=== PATIENT | female | born 2000 | race Hispanic/Latino ===

== ENCOUNTER 2023-03-23 22:30 | Emergency (ER) | payer OTHER, SELFPAY ==
[2023-03-23 22:38] VITALS: BP 123/80; PULSE 90; RESP 18; TEMP 36.4; O2SAT 100; BMI 25.7
--- NOTE | 2023-03-23 22:42 | DI.RAD.S_ITS ---
PROCEDURE: XR CHEST 1V INDICATIONS: chest pain TECHNIQUE: One view of the chest was acquired. COMPARISON: None. FINDINGS: Surgical changes and devices: None. Lungs and pleura: No consolidation or pleural effusion. Mediastinum: Normal size Bones and chest wall: Unremarkable IMPRESSION: No acute radiographic abnormality. Dictated by: Fab Bailey M.D. on 03/23/2023 at 23:39 Approved by: Fab Bailey M.D. on 03/23/2023 at 23:40
--- NOTE | 2023-03-23 23:06 | ED.CHESTPAIN ---
HPI - Chest Pain General Chief Complaint: Chest Pain Stated Complaint: chest pains Time Seen by Provider: 03/23/23 22:35 Source: patient Mode of arrival: Ambulatory Limitations: no limitations History of Present Illness HPI narrative: 22-year-old female with no reported past medical history presents for central upper chest pain that is worse with expiration since waking up this morning. No medications taken prior to arrival. Patient denies family history of heart disease, denies history of tobacco use. Denies use of oral contraceptive pills, recent surgeries or immobilization, denies recent long car/plane rides, denies leg swelling. Review of Systems Review of Systems Narrative: Otherwise negative Patient History Social History Smoking Status: Current some day smoker Smoking Status: Current some day smoker tobacco type: vaping Substance Use Type: does not use Exam Initial Vital Signs Initial Vital Signs: Vital Signs Temperature 97.6 F 03/23/23 22:38 Pulse Rate 90 03/23/23 22:38 Respiratory Rate 18 03/23/23 22:38 Blood Pressure 123/80 03/23/23 22:38 Pulse Oximetry 100 03/23/23 22:38 Oxygen Delivery Method Room Air 03/23/23 22:38 Const: Awake, alert, no acute distress, nontoxic appearing Cardiac: regular rate, regular rhythm, upper sternal chest pain reproducible to palpation RESP: unlabored, clear bilaterally, no wheezing GI: Atraumatic, soft, nontender, nondistended, no rebound, no guarding Skin: Warm, Dry, intact, no rashes Neuro: AO x3, CN II-XII grossly intact, moves all extremities Course Course Course Narrative: Well-appearing patient with 1 day of central reproducible chest pain. Heart score 0, PERC negative. EKG is normal sinus rhythm without concerning findings. Chest x-ray is negative for acute process. Likely costochondritis. Patient counseled to take Tylenol and Motrin as needed for symptoms and to use gentle stretching exercises to help relieve pain. PCP follow up advised. ED return precautions discussed at bedside. Patient expressed understanding of the plan and is in agreement at this time. All questions answered at the time of discharge. Orders Ordered: ED Orders 03/23/23 22:42 Chest [XR chest 1V] Stat EKG-12 Lead Stat Discontinued Medications Acetaminophen (Acetaminophen 325 Mg Tablet) 975 mg PO NOW ONE Stop: 03/23/23 23:36 Last Admin: 03/23/23 23:42 Dose: 975 mg Documented By: FRANCISCO J Ibuprofen (Ibuprofen 400 Mg Tablet) 400 mg PO NOW ONE Stop: 03/23/23 23:36 Last Admin: 03/23/23 23:42 Dose: 400 mg Documented By: FRANCISCO J Vital Signs Vital signs: Vital Signs - 8 hr 03/23/23 22:38 03/23/23 23:52 Temperature 97.6 F Pulse Rate 90 76 Respiratory Rate 18 16 Blood Pressure 123/80 105/69 Pulse Oximetry 100 98 Oxygen Delivery Method Room Air Room Air MDM - Chest Pain Differential Diagnosis Differential diagnosis: Likely pneumothorax, atypical chest pain and costochondritis ECG Data Interpretation: Normal sinus rhythm, rate 88 beats per minute. Normal UT interval. No ST T wave changes, no STEMI Discharge Plan Departure Patient Disposition: Home Clinical Impression: Sternum pain Instructions: DI for Atypical Chest Pain Activity Restrictions/Additional Instructions: Take Tylenol and motrin as needed for pain. Gentle chest wall stretching exercises can be helpful. Follow up as needed with your PCP. Referrals: ProviderAnahi [Primary Care Provider] - Stand Alone Forms: Patient Portal/API
[2023-03-23] MEDS: ACETAMINOPHEN 325 MG TABLET 975 MG PO (23:42)
[2023-03-23] MEDS: IBUPROFEN 400 MG TABLET PO (23:42)
[2023-03-23 23:52] VITALS: BP 105/69; PULSE 76; RESP 16; O2SAT 98
== END 2023-03-23 23:53 | disposition home or self-care (01) ==
PROVIDERS: Emergency Provider Emergency Medicine
DX: R07.89 Other chest pain (principal)
CPT/HCPCS: 71045; 93005; 93010; 99283; 99284

== ENCOUNTER 2024-07-16 09:41 | Emergency (ER) | payer OTHER, SELFPAY ==
[2024-07-16 09:47] VITALS: BP 113/57; PULSE 75; RESP 18; TEMP 36.7; O2SAT 98; BMI 25.7
--- NOTE | 2024-07-16 10:09 | DI.US.S_ITS ---
PROCEDURE: US OB <= 14 WEEKS FETUS INDICATIONS: spotting for 1 week OUTSIDE/PRIOR DATING DATA: Last menstrual period (LMP): 05/19/2024. LMP-based estimated date of delivery (PATITO): 02/28/2025. First dating scan (date and location): 07/16/2024. Estimated date of delivery (PATITO) from first dating scan: 03/04/2025. The calculations are made using the ultrasound PATITO of 03/04/2025. TECHNIQUE: Real-time scanning was performed of the fetus and maternal pelvic organs, with image documentation. Endovaginal scanning was also performed to better visualize the fetus and maternal ovaries. COMPARISON: None. FINDINGS: Embryo: [place]-rump length measuring 1.0 cm, 7 weeks 0 days. Heart rate: 132 Maternal organs: Ovaries are unremarkable. There is a 1.7 cm right corpus luteum. Small subchorionic hemorrhage measuring 0.7 x 0.2 x 0.3 cm.\ . IMPRESSION: 1. Living early 1st trimester intrauterine with crown-rump length and heartbeat measuring 7 weeks 0 days. 2. Small subchorionic hemorrhage. We strive to produce accurate, complete, and clear reports of imaging services. To assist us in improving patient care, this report was composed using standard report templates and voice recognition software. Therefore, it may contain abnormal punctuation, insertions and/or omissions. Occasional wrong-word or sound-alike substitutions may occur. Though we review the report and make efforts to correct it, we do recommend that the report be read carefully in proper context to recognize any text inaccuracies. Dictated by: Clay Echols M.D. on 07/16/2024 at 10:52 Approved by: Clay Echols M.D. on 07/16/2024 at 10:55
--- NOTE | 2024-07-16 10:15 | PC.NURSE ---
Pt reports most time she wipes over the course of the last 10 days she has seen pink to orange/red blood. Pt states she is not going through pads. states this is the first time she is . Pt states some mild intermittent cramping.
[2024-07-16 10:21] LABS: Add Manual Diff / Slide Review NO; Basophils Absolute Auto 0 /uL (0-100); Basophils Percent Auto 0.6 % (0-2); Eosinophils Absolute Auto 100 /uL (0-450); Eosinophils Percent Auto 0.8 % (2-4); Hematocrit 38.1 % (36-46); Lymphocytes Absolute Auto 2100 /uL (1100-4500); Lymphocytes Percent Auto 26.9 % (25-40); Mean Corpuscular HGB Conc 34.1 % (30-36); Mean Corpuscular Hemoglobin 30.3 PG (26-34); Monocytes Absolute Auto 600 /uL (0-900); Monocytes Percent Auto 7.8 % (3-14); Neutrophils Absolute Auto 5000 /uL (1500-7000); Neutrophils Percent Auto 63.9 % (50-75); Platelet Count 272 X10^3/uL (150-400); Red Blood Cell Count 4.28 X10^6/uL (4.0-5.2); Red Cell Distribution Width 12.6 % (11.6-14.8); White Blood Cell Count 7.8 X10^3/uL (4.5-11.0)
[2024-07-16 10:24] LABS: Urine Volume 10mL (spun)
[2024-07-16 10:27] LABS: Bacteria Urine None Seen; Culture Indicated Urine Specimen Cultured; RBC Urine 1-5/HPF (0-5/HPF); Squamous Epithelial Cell Urine 5-10 /HPF (0-5/HPF); WBC Urine 5-10/HPF (0-5/HPF)
[2024-07-16 10:34] LABS: Alanine Aminotransferase 16 IU/L (<35); Albumin 4.1 g/dL (3.5-5.0); Albumin Globulin Ratio 1.5 (1.0-2.8); Alkaline Phosphatase 49 U/L (38-126); Aspartate Aminotransferase 23 IU/L (14-36); BUN Creatinine Ratio 14.3 (6-22); Bilirubin Total 1.3 mg/dL (0.2-1.3); Blood Urea Nitrogen 9 mg/dL (7-17); Calcium 8.9 mg/dL (8.4-10.2); Carbon Dioxide 24 mmol/L (22-32); Chloride 103 mmol/L (98-107); Estimated Glomerular Filt Rate > 60 mL/min (>60); Globulin 2.8 g/dL (1.7-4.1); Glucose 84 mg/dL (70-99); HEMOLYSIS < 15 (0-50); Potassium 3.4 mmol/L (3.4-5.1); Sodium 135 mmol/L (137-145); Total Protein 6.9 g/dL (6.3-8.2)
--- NOTE | 2024-07-16 10:50 | ED_ITS ---
HPI - Female Genitourinary General Chief complaint: Vaginal Bleeding Stated complaint: 8 Weeks spotting Time Seen by Provider: 07/16/24 10:15 History of Present Illness HPI Narrative: Patient is a 24-year-old female presenting to day with vaginal bleeding. She reports that she was about 8 weeks . Has not yet set up OB care. But for about 1 week has noted some spotting. Mostly when she wipes does not ever need a pad. No significant pain or cramping. No dizziness or lightheadedness takes prenatals. Related Data Allergies Allergy/AdvReac Type Severity Reaction Status Date / Time No Known Drug Allergies Allergy Verified 07/16/24 09:47 Patient History tobacco type: vaping Last Alcoholic Drink: does not use Exam Initial Vital Signs Initial Vital Signs: Vital Signs Temperature 98.1 F 07/16/24 09:47 Pulse Rate 75 07/16/24 09:47 Respiratory Rate 18 07/16/24 09:47 Blood Pressure 113/57 L 07/16/24 09:47 Pulse Oximetry 98 07/16/24 09:47 Oxygen Delivery Method Room Air 07/16/24 09:47 Course Orders Ordered: ED Orders 07/16/24 09:55 Urine Culture Stat Urine Microscopic Stat 07/16/24 10:08 Complete Blood Count AUTO DIFF Stat Comprehensive Metabolic Panel Stat HCG Quantitative /Beta subunit Stat Type and Screen Stat 07/16/24 10:09 OB <= 14 weeks fetus Stat Vital Signs Vital signs: Vital Signs - 8 hr 07/16/24 11:37 07/16/24 11:38 07/16/24 11:38 Pulse Rate 64 64 Blood Pressure 109/63 Pulse Oximetry 99 MDM - Female Genitourinary Lab Data 07/16/24 10:08 07/16/24 10:08 Labs: Lab Results 07/16/24 07/16/24 Range/Units 09:55 10:08 WBC 7.8 (4.5-11.0) X10^3/uL RBC 4.28 (4.0-5.2) X10^6/uL Hgb 13.0 (12.0-16.0) g/dL Hct 38.1 (36-46) % MCV 89.0 (80-100) fL MCH 30.3 (26-34) PG MCHC 34.1 (30-36) % RDW 12.6 (11.6-14.8) % Plt Count 272 (150-400) X10^3/uL Neut % (Auto) 63.9 (50-75) % Lymph % (Auto) 26.9 (25-40) % [place]gs % (Auto) 7.8 (3-14) % Eos % (Auto) 0.8 L (2-4) % Baso % (Auto) 0.6 (0-2) % Neut # (Auto) 5000 (7564-0087) /uL Lymph # (Auto) 2100 (3342-6493) /uL [place] # (Auto) 600 (0-900) /uL Eos # (Auto) 100 (0-450) /uL Baso # (Auto) 0 (0-100) /uL Sodium 135 L (137-145) mmol/L Potassium 3.4 (3.4-5.1) mmol/L Chloride 103 (98-107) mmol/L Carbon Dioxide 24 (22-32) mmol/L BUN 9 (7-17) mg/dL Creatinine 0.63 (0.52-1.04) mg/dL Estimated GFR > 60 (>60) mL/min BUN/Creatinine Ratio 14.3 (6-22) Glucose 84 (70-99) mg/dL Calcium 8.9 (8.4-10.2) mg/dL Total Bilirubin 1.3 (0.2-1.3) mg/dL AST 23 (14-36) IU/L ALT 16 (<35) IU/L Alkaline Phosphatase 49 (38-126) U/L Total Protein 6.9 (6.3-8.2) g/dL Albumin 4.1 (3.5-5.0) g/dL Globulin 2.8 (1.7-4.1) g/dL Albumin/Globulin Ratio 1.5 (1.0-2.8) HCG, Quant 834337 mIU/mL Urine RBC 1-5/hpf (0-5/HPF) Urine WBC 5-10/hpf H (0-5/HPF) Ur Squamous Epith Cells 5-10 /hpf H (0-5/HPF) Urine Bacteria None seen (None) Ur Culture Indicated? Specimen cultured Vol Urine Centrifuged 10ml (spun) Blood Type A Positive Antibody Screen Negative Point of Care Testing Test Results Positive Urine Dip Bedside Urine Glucose Negative Bedside Urine Bilirubin - Negative Bedside Urine Ketone +/- 5 Urine Specific Bernard 1.025 Bedside Urine Occult Blood +/- Bedside Urine pH 6.0 Bedside Urine Protein +/- 15 Bedside Urine Urobilinogen - Negative Bedside Urine Nitrite - Negative Bedside Urine Leukocytes ++ 125 Esterase Imaging Data US - OB: Radiologist's Impression: PROCEDURE: US OB <= 14 WEEKS FETUS INDICATIONS: spotting for 1 week OUTSIDE/PRIOR DATING DATA: Last menstrual period (LMP): 05/19/2024. LMP-based estimated date of delivery (PATITO): 02/28/2025. First dating scan (date and location): 07/16/2024. Estimated date of delivery (PATITO) from first dating scan: 03/04/2025. The calculations are made using the ultrasound PATITO of 03/04/2025. TECHNIQUE: Real-time scanning was performed of the fetus and maternal pelvic organs, with image documentation. Endovaginal scanning was also performed to better visualize the fetus and maternal ovaries. COMPARISON: None. FINDINGS: Embryo: [place]-rump length measuring 1.0 cm, 7 weeks 0 days. Heart rate: 132 Maternal organs: Ovaries are unremarkable. There is a 1.7 cm right corpus luteum. Small subchorionic hemorrhage measuring 0.7 x 0.2 x 0.3 cm.\ . IMPRESSION: 1. Living early 1st trimester intrauterine with crown-rump length and heartbeat measuring 7 weeks 0 days. 2. Small subchorionic hemorrhage. We strive to produce accurate, complete, and clear reports of imaging services. To assist us in improving patient care, this report was composed using standard report templates and voice recognition software. Therefore, it may contain abnormal punctuation, insertions and/or omissions. Occasional wrong-word or sound-alike substitutions may occur. Though we review the report and make efforts to correct it, we do recommend that the report be read carefully in proper context to recognize any text inaccuracies. Dictated by: Clay Echols M.D. on 07/16/2024 at 10:52 Approved by: Clay Echols M.D. on 07/16/2024 at 10:55 [facility] Narrative Medical decision making narrative: Patient is a 24 year old female presenting to [facility] with vaginal bleeding. She has had some spotting for about a week no significant pain Blood work reviewed she was a pause HCG 192819 CMP shows no electrolyte abnormality or [place], CBC shows no anemia Urinalysis is negative for UTI Ultrasound shows a 7 week IUP with small subchorionic hemorrhage Dr. Jackson, OB, we will have clinic call for follow-up hCG in 48hour Overall abdomen soft nontender she appears well vitals are stable no increased UD Discharge Plan Departure Patient Disposition: Home Clinical Impression: Threatened Instructions: DI for Vaginal Bleeding During Activity Restrictions/Additional Instructions: HCG 527938 *You have been diagnosed with vaginal bleeding with *What to do: At this time you will need a 48 hour HCG repeat test is sure it is going Continue pelvic rest *Continue to take medications as directed Continues to take *Follow up with your primary care provider in 2-3 days or call [phone] *Return to ER if you should have increased vaginal bleeding more than 2 pads in 1 hour increased cramps such as or any new, worsening or concerning symptoms Referrals: Anu Weinberg MD [Physician] - Nayla Jackson MD [Physician] - Provider,Anahi WYNN [Primary Care Provider] - Antonina Scales MD [Physician] - Kimberly Farfan DO [Physician] - Stand Alone Forms: Patient Portal/API/Survey
[2024-07-16 11:16] LABS: HCG Quantitative /Beta subunit 104520 mIU/mL
[2024-07-16 11:37] VITALS: PULSE 64
[2024-07-16 11:38] VITALS: BP 109/63; PULSE 64; O2SAT 99
== END 2024-07-16 11:48 | disposition home or self-care (01) ==
PROVIDERS: Emergency Provider Emergency Medicine
DX: O20.0 Threatened abortion (principal); Z3A.01 Less than 8 weeks gestation of pregnancy
CPT/HCPCS: 36415; 76801; 80053; 81003; 81015; 81025; 84702; 85025; 86850; 86900; 86901; 87086; 99282; 99284

== ENCOUNTER → 2024-07-18 10:16 | Outpatient (CLI) | payer OTHER, SELFPAY ==
[2024-07-18 10:38] LABS: Add Manual Diff / Slide Review NO; Basophils Absolute Auto 100 /uL (0-100); Basophils Percent Auto 0.6 % (0-2); Eosinophils Absolute Auto 100 /uL (0-450); Eosinophils Percent Auto 0.6 % (2-4); Hematocrit 38.6 % (36-46); Hemoglobin 13.2 g/dL (12.0-16.0); Lymphocytes Absolute Auto 2300 /uL (1100-4500); Lymphocytes Percent Auto 26.2 % (25-40); Mean Corpuscular HGB Conc 34.1 % (30-36); Mean Corpuscular Hemoglobin 30.1 PG (26-34); Mean Corpuscular Volume 88.3 fL (80-100); Monocytes Absolute Auto 600 /uL (0-900); Monocytes Percent Auto 6.6 % (3-14); Neutrophils Absolute Auto 5900 /uL (1500-7000); Platelet Count 275 X10^3/uL (150-400); Red Blood Cell Count 4.37 X10^6/uL (4.0-5.2); Red Cell Distribution Width 12.6 % (11.6-14.8)
[2024-07-18 11:27] LABS: Appearance Urine UA SL CLOUDY; Bilirubin Urine UA NEGATIVE (NEGATIVE); Color Urine UA YELLOW; Glucose Urine UA NEGATIVE (Negative); Ketones Urine UA NEGATIVE (NEGATIVE); Leukocyte Esterase Urine UA 1+ (NEGATIVE); Nitrite Urine UA NEGATIVE (Negative); Occult Blood Urine UA NEGATIVE (Negative); Protein Urine UA TRACE (Negative); Urobilinogen Urine UA 0.2 E.U./dL (0.2)
[2024-07-18 11:36] LABS: Squamous Epithelial Cell Urine 10-30 /HPF (0-5/HPF); Urine Volume 10mL (spun)
[2024-07-18 11:37] LABS: Bacteria Urine Many (>30); Culture Indicated Urine Cult Not Indicated; RBC Urine None Seen (0-5/HPF); WBC Urine 1-5/HPF (0-5/HPF)
[2024-07-18 11:38] LABS: Hepatitis B Surface Antigen NEGATIVE s/c (NEGATIVE)
[2024-07-18 11:55] LABS: HIV 1 & 2 Ab/Ag 4th Gen Combo NEGATIVE (NEGATIVE); Hep C Virus Ab w/Reflex Quant NEGATIVE s/c (NEGATIVE)
== END ==
LOC: LAB 10:18
PROVIDERS: Referring Provider Student in an Organized Health Care Education/Training Program; Visit Provider Student in an Organized Health Care Education/Training Program
DX: Z34.00 Encounter for supervision of normal first pregnancy, unspecified trimester (principal)
CPT/HCPCS: 36415; 80055; 81003; 81015; 86787; 86803; 86850; 86900; 86901; 87086; 87389

== ENCOUNTER → 2024-07-20 08:56 | Outpatient (CLI) | payer OTHER, SELFPAY ==
[2024-07-20 09:56] LABS: Appearance Urine UA CLEAR; Bilirubin Urine UA NEGATIVE (NEGATIVE); Color Urine UA YELLOW; Glucose Urine UA NEGATIVE (Negative); Ketones Urine UA NEGATIVE (NEGATIVE); Leukocyte Esterase Urine UA TRACE (NEGATIVE); Nitrite Urine UA NEGATIVE (Negative); Occult Blood Urine UA NEGATIVE (Negative); Protein Urine UA NEGATIVE (Negative); Urobilinogen Urine UA 0.2 E.U./dL (0.2)
[2024-07-20 10:19] LABS: pH Urine UA 6.5 (4.5-8.0)
[2024-07-20 10:20] LABS: Bacteria Urine Few (2-10); RBC Urine 0-1/HPF (0-5/HPF); Squamous Epithelial Cell Urine 5-10 /HPF (0-5/HPF); Urine Volume 10mL (spun); WBC Urine 1-5/HPF (0-5/HPF)
== END ==
PROVIDERS: Referring Provider Student in an Organized Health Care Education/Training Program; Visit Provider Student in an Organized Health Care Education/Training Program
DX: Z34.90 Encounter for supervision of normal pregnancy, unspecified, unspecified trimester (principal); R30.0 Dysuria; R82.71 Bacteriuria
CPT/HCPCS: 81001; 87086

== ENCOUNTER → 2024-08-07 10:26 | Outpatient (CLI) | payer OTHER, SELFPAY ==
[2024-08-07 11:32] LABS: Natera Collection Specimen Collected
== END ==
PROVIDERS: Referring Provider Student in an Organized Health Care Education/Training Program; Visit Provider Student in an Organized Health Care Education/Training Program
DX: Z34.01 Encounter for supervision of normal first pregnancy, first trimester (principal); Z13.79 Encounter for other screening for genetic and chromosomal anomalies; Z3A.10 10 weeks gestation of pregnancy
CPT/HCPCS: 36415

== ENCOUNTER 2024-08-23 13:07 | Emergency (ER) | payer OTHER, SELFPAY ==
[2024-08-23 13:34] VITALS: BP 112/62; PULSE 78; RESP 18; TEMP 36.9; O2SAT 99; BMI 26.2
[2024-08-23 14:25] LABS: RBC Urine None Seen (0-5/HPF); Squamous Epithelial Cell Urine 5-10 /HPF (0-5/HPF); Urine Volume 10mL (spun); WBC Urine 1-5/HPF (0-5/HPF)
[2024-08-23 14:26] LABS: Bacteria Urine Few (2-10)
[2024-08-23 14:27] LABS: Culture Indicated Urine Cult Not Indicated
--- NOTE | 2024-08-23 15:32 | ED_ITS ---
HPI - Female Genitourinary <Miranda Rivera PA-C - Last Filed: 08/23/24 16:44> General Chief complaint: Urogenital-Female Stated complaint: possible UTI 12wks Time Seen by Provider: 08/23/24 15:29 Source: patient Mode of arrival: Ambulatory History of Present Illness HPI Narrative: Ms. Smith is a very pleasant 24-year-old female with no reported past medical history, currently about [address] Wilson who presents to the emergency department for concern of UTI. Patient states yesterday she started having diarrhea. She is also noticed there is an itch/discomfort near her urethra when she urinates. She has never had a UTI in the past so she was unsure if her symptoms were related to an infection or something else. She has not having any abnormal vaginal discharge, vaginal bleeding, cramping or abdominal pain. She has been feeling overall very well this . She is not currently sexually active. States that she has been holding her bladder more frequently recently. Related Data Home Medications ?Medication ?Instructions ?Recorded ?Confirmed vitamin-ferrous sulfate tab PO 07/18/2408/17 27 mg iron-folic acid 0.8 mg tablet Allergies Allergy/AdvReac Type Severity Reaction Status Date / Time No Known Drug Allergies Allergy Verified 08/23/24 13:35 Review of Systems <Miranda Rivera PA-C - Last Filed: 08/23/24 16:44> Review of Systems ROS Unobtainable: All systems reviewed & are unremarkable except as noted in HPI and below Patient History <Miranda Rivera PA-C - Last Filed: 08/23/24 16:44> Surgical History [place] teeth removed Hx of breast biopsy Family History Mother Gallstones History of cholecystectomy Father Diabetes mellitus Aunt Stomach cancer tobacco type: vaping Last Alcoholic Drink: does not use Exam <Miranda Rivera PA-C - Last Filed: 08/23/24 16:44> Narrative Exam Narrative: GENERAL: 24 year old patient appears stated age. Well-developed patient, in no acute distress. HEAD: Atraumatic. Normocephalic. NECK: Trachea midline. Cervical ROM intact. CARDIOVASCULAR: Regular rate and rhythm. RESPIRATORY: ?Nonlabored respirations. ?Speaking in clear, full sentences. ?Clear to auscultation. Breath sounds equal bilaterally. No wheezes, rales, or rhonchi. ? GASTROINTESTINAL: Abdomen soft, non-tender, nondistended. EXTREMITIES: No edema or joint tenderness. NEURO: AOx3. ?Clear speech. ?Moves all 4 extremities appropriately. SKIN: No rash or erythema of visible areas Initial Vital Signs Initial Vital Signs: Vital Signs Temperature 98.4 F 08/23/24 13:34 Pulse Rate 78 08/23/24 13:34 Respiratory Rate 18 08/23/24 13:34 Blood Pressure 112/62 08/23/24 13:34 Pulse Oximetry 99 08/23/24 13:34 Oxygen Delivery Method Room Air 08/23/24 13:34 <Pam Davis DO - Last Filed: 09/03/24 19:04> Initial Vital Signs Initial Vital Signs: Vital Signs Temperature 98.4 F 08/23/24 13:34 Pulse Rate 78 08/23/24 13:34 Respiratory Rate 18 08/23/24 13:34 Blood Pressure 112/62 08/23/24 13:34 Pulse Oximetry 99 08/23/24 13:34 Oxygen Delivery Method Room Air 08/23/24 13:34 Course <Miranda Rivera PA-C - Last Filed: 08/23/24 16:44> Orders Ordered: Discontinued Medications Cephalexin HCl (Cephalexin 250 Mg Capsule) 500 mg PO NOW ONE Stop: 08/23/24 15:31 Last Admin: 08/23/24 15:36 Dose: 500 mg Documented By: LEANDRA Vital Signs Vital signs: Vital Signs - 8 hr 08/23/24 13:34 08/23/24 16:06 Temperature 98.4 F Pulse Rate 78 74 Respiratory Rate 18 14 Blood Pressure 112/62 107/56 L Pulse Oximetry 99 97 Oxygen Delivery Method Room Air Room Air <DO Dacia Hassan Last Filed: 09/03/24 19:04> Orders Ordered: Discontinued Medications Cephalexin HCl (Cephalexin 250 Mg Capsule) 500 mg PO NOW ONE Stop: 08/23/24 15:31 Last Admin: 08/23/24 15:36 Dose: 500 mg Documented By: DKB Vital Signs Vital signs: Vital Signs - 8 hr 08/23/24 13:34 08/23/24 16:06 Temperature 98.4 F Pulse Rate 78 74 Respiratory Rate 18 14 Blood Pressure 112/62 107/56 L Pulse Oximetry 99 97 Oxygen Delivery Method Room Air Room Air MDM - Female Genitourinary <Miranda Rivera PA-C - Last Filed: 08/23/24 16:44> Medical Records Attestation: I reviewed the patient's medical records. Lab Data Labs: Lab Results 08/23/24 Range/Units 13:40 Urine RBC None seen (0-5/HPF) Urine WBC 1-5/hpf (0-5/HPF) Ur Squamous Epith Cells 5-10 /hpf H (0-5/HPF) Urine Bacteria Few (2-10) H (None) Ur Culture Indicated? Cult not indicated Vol Urine Centrifuged 10ml (spun) Urine Dip Bedside Urine Glucose Negative Bedside Urine Bilirubin - Negative Bedside Urine Ketone - Negative Urine Specific Adams 1.025 Bedside Urine Occult Blood - Negative Bedside Urine pH 6 Bedside Urine Protein - Negative Bedside Urine Urobilinogen - Negative Bedside Urine Nitrite - Negative Bedside Urine Leukocytes +/- 15 Esterase MDM Narrative Medical decision making narrative: 24-year-old female with no reported past medical history, currently about [address] Wilson who presents to the emergency department for concern of UTI. Differential diagnosis includes but is not limited to UTI, urethritis, vulvovaginal candidiasis, bacteriuria in , etc. On exam patient is in no acute distress, nontoxic appearing, vital signs appropriate. She is having slight urinary discomfort for the last 2 days. No abnormal vaginal discharge, no abdominal pain. Not currently sexually active. Point of care urinalysis obtained in triage, urine microscopic was sent revealing few bacteria, WBCs and squamous epithelial cells. Given patient is , we will treat with Keflex t.i.d. x5 days, urine culture pending. I did discuss with the patient that if symptoms do not improve or she develops any white thick discharge symptoms could be related to vulvovaginal candidiasis and she would need to be treated with intravaginal antifungal. Advised she follow up with her OBGYN however we also discussed strict ED return precautions. Patient verbalized understanding of all this information is agreeable to the plan, 1st dose of antibiotics given in the ED and remainder sent to pharmacy of choice. She is stable for discharge home. <Pam Davis DO - Last Filed: 09/03/24 19:04> Lab Data Labs: Lab Results 08/23/24 Range/Units 13:40 Urine RBC None seen (0-5/HPF) Urine WBC 1-5/hpf (0-5/HPF) Ur Squamous Epith Cells 5-10 /hpf H (0-5/HPF) Urine Bacteria Few (2-10) H (None) Ur Culture Indicated? Cult not indicated Vol Urine Centrifuged 10ml (spun) Urine Dip Bedside Urine Glucose Negative Bedside Urine Bilirubin - Negative Bedside Urine Ketone - Negative Urine Specific Adams 1.025 Bedside Urine Occult Blood - Negative Bedside Urine pH 6 Bedside Urine Protein - Negative Bedside Urine Urobilinogen - Negative Bedside Urine Nitrite - Negative Bedside Urine Leukocytes +/- 15 Esterase Discharge Plan Departure Patient Disposition: Home Clinical Impression: Bacteriuria during Instructions: DI for Urinary Tract Infection (UTI) Activity Restrictions/Additional Instructions: Dear Luis, Thank you for coming to the emergency department. Today your urine test did reveal bacteria which are concerning for urinary tract infection. Please complete the full course of antibiotics and follow up with your OBGYN for further management. If you continue to have symptoms such as vaginal itching or if you develop abnormal vaginal discharge, it is possible that your symptoms could be related to a yeast infection as well and you would need topical cream for treatment. Please follow up with your primary care doctor within the next 2-3 days for ER follow-up. (If you do not have a PCP you can call [phone]. ?to schedule an appointment with an [facility] Primary Care Provider) IF YOU DEVELOP ANY NEW OR WORSENING SYMPTOMS, RETURN TO THE ER! Please read the attached instructions, they highlight more specific treatments and interventions for you at home. Thank you for letting me participate in your care, Miranda Rivera PA-C Prescriptions: No Action vit-ferrous sulfat-FA 27 mg iron- 0.8 mg tablet PO Referrals: ProviderAnahi [Primary Care Provider, Family Practice] Stand Alone Forms: Patient Portal/API ED Sign-out <Pam Davis DO - Last Filed: 09/03/24 19:04> Cosign ED Attending Cosignature Attestation: I was immediately available in the department for consultation.
[2024-08-23] MEDS: cephALEXin 250 MG CAPSULE 500 MG PO (15:36)
[2024-08-23 16:06] VITALS: BP 107/56; PULSE 74; RESP 14; O2SAT 97
== END 2024-08-23 16:07 | disposition home or self-care (01) ==
PROVIDERS: Emergency Medicine; Emergency Provider Physician Assistant
DX: O26.891 Other specified pregnancy related conditions, first trimester (principal); R82.71 Bacteriuria; Z3A.12 12 weeks gestation of pregnancy
CPT/HCPCS: 81003; 81015; 87086; 99283

== ENCOUNTER → 2024-10-12 12:14 | Outpatient (CLI) | payer OTHER, SELFPAY ==
--- NOTE | 2024-10-12 12:14 | DI.US.S_ITS ---
PROCEDURE: US OB >= 14 WEEKS FETUS INDICATIONS: ANATOMY OUTSIDE/PRIOR DATING DATA: The calculations are made using the working PATITO of 03/04/2025 TECHNIQUE: Real-time scanning was performed of the fetus, with image documentation and biometric measurements. Endovaginal scanning: Not performed COMPARISON: [facility], OB <= 14 WEEKS FETUS, 07/16/2024, 10:20. FINDINGS: General: A single living intrauterine gestation is present. Presentation: Variable Placenta: Placental position is posterior, without previa. Amniotic fluid index: 14.8 cm, normal range is 5-24 cm. Single deepest vertical pocket is 5.3 cm. heart rate: 150 beats per minute. Maternal cervical canal: Closed and measures 4.5 cm long. Normal lower limit is 2.5 cm. biometrics: Biparietal diameter: 4.5 cm, 19 weeks, 4 days. Head circumference: 16.2 cm, 19 weeks, 0 day. Abdominal circumference: 13.6 cm, 19 weeks, 0 day. Femur length: 2.9 cm, 19 weeks, 0 day Clinically estimated gestational age: 19 weeks, 4 days Composite gestational age from present scan: 19 weeks, 1 day Estimated weight and percentile: 271 g, 19% Anatomic survey: Neuro: Ventricles are non-dilated at less than 10 mm. Cisterna magna is normal at 3-11 mm. Cerebellum is normal in size and morphology. Nuchal skin fold: Normal at less than 6 mm between 14-21 weeks gestational age. Face: Nose and lips, facial profile are normal. Spine: No evidence for spina bifida. Heart: 4-chambered heart is present, with normal ventricular outflow tracts. Diaphragm: Diaphragm is intact. Stomach: Left-sided stomach is present. Kidneys: No hydronephrosis. Normal is less than 5 mm in 2nd trimester, less than 7 mm in 3rd trimester. Cord: 3-vessel cord has orthotopic insertion. Likely venous lakes seen i involving inferior portion of the placenta. Bladder: Normal in size. Extremities: All 4 extremities identified. IMPRESSION: 1. Single live intrauterine gestation with fetus in variable presentation. heart rate is 150 beats per minute. Normal MARTITA at 14.8 cm. Cervix is closed and measures 4.5 cm in length. 2. Estimated weight is at 19%. 3. Normal anatomic survey. 4. Small venous [place] seen in inferior portion of placenta. We strive to produce accurate, complete, and clear reports of imaging services. To assist us in improving patient care, this report was composed using standard report templates and voice recognition software. Therefore, it may contain abnormal punctuation, insertions and/or omissions. Occasional wrong-word or sound-alike substitutions may occur. Though we review the report and make efforts to correct it, we do recommend that the report be read carefully in proper context to recognize any text inaccuracies. Dictated by: Gaurang Schulz M.D. on 10/13/2024 at 15:59 Approved by: Gaurang Schulz M.D. on 10/13/2024 at 16:22
== END ==
LOC: US 12:14
PROVIDERS: Referring Provider Student in an Organized Health Care Education/Training Program; Visit Provider Student in an Organized Health Care Education/Training Program
DX: Z34.92 Encounter for supervision of normal pregnancy, unspecified, second trimester (principal); Z3A.20 20 weeks gestation of pregnancy
CPT/HCPCS: 76811

== ENCOUNTER 2024-11-21 01:52 | Outpatient (CLI) | payer OTHER, SELFPAY | END 2024-11-21 02:26 | disposition home or self-care (01) | LOC: OB 08:05 | PROVIDERS: Referring Provider Obstetrics & Gynecology; Visit Provider Obstetrics & Gynecology | DX: O60.02 Preterm labor without delivery, second trimester (principal); Z3A.25 25 weeks gestation of pregnancy | CPT/HCPCS: 59025; G0378; G0379 ==

== ENCOUNTER → 2024-12-14 13:08 | Outpatient (CLI) | payer OTHER, SELFPAY ==
[2024-12-14 14:37] LABS: Hematocrit 31.1 % (36-46); Hemoglobin 10.9 g/dL (12.0-16.0)
[2024-12-14 14:58] LABS: GTT (PREG) 1 Hour PP 50gm Dose 144 mg/dL (76-139)
== END ==
PROVIDERS: Referring Provider Student in an Organized Health Care Education/Training Program; Visit Provider Student in an Organized Health Care Education/Training Program
DX: Z3A.24 24 weeks gestation of pregnancy (principal)
CPT/HCPCS: 36415; 82950; 85014; 85018

== ENCOUNTER → 2024-12-21 08:10 | Outpatient (CLI) | payer OTHER, SELFPAY ==
[2024-12-21 10:44] LABS: Glucose 1 Hour 123 mg/dL (70-170)
[2024-12-21 11:24] LABS: Glucose Tol Interpretation INTERPRETATION
[2024-12-21 12:23] LABS: Glucose 2 Hour 107 mg/dL (70-140)
[2024-12-21 13:08] LABS: Glucose 3 Hour 81 mg/dL (70-115)
== END ==
PROVIDERS: Visit Provider Student in an Organized Health Care Education/Training Program
DX: Z34.00 Encounter for supervision of normal first pregnancy, unspecified trimester (principal)
CPT/HCPCS: 36415; 82951; 82952

== ENCOUNTER → 2025-02-05 13:54 | Outpatient (CLI) | payer OTHER, SELFPAY ==
[2025-02-06 12:38] LABS: Strep Grp B PCR NEG for Grp B Strep
== END ==
PROVIDERS: Visit Provider Student in an Organized Health Care Education/Training Program
DX: Z34.93 Encounter for supervision of normal pregnancy, unspecified, third trimester (principal); Z3A.36 36 weeks gestation of pregnancy
CPT/HCPCS: 87653

== ENCOUNTER 2025-03-03 17:50 | Inpatient (IN) | payer OTHER, SELFPAY ==
--- NOTE | 2025-03-03 18:58 | PM.OBHP.IH.1 ---
OB HPI Date/Time Date of admission: 03/03/25 Date Patient Seen: 03/03/25 Time Patient Seen: 18:58 History of Present Condition Chief complaint: NST PATITO Calculator Estimated Delivery Date Method Current WG Current Estimate 03/04/25 Ultrasound #1 39w 6d Other Estimates 02/23/25 LMP (Certain) 41w 1d 03/05/25 Ultrasound #2 39w 5d Estimated Gestational Age (weeks): 39w6d : 1 care: good care Dating criteria OB: LMP confirmed by 1st trimester US Ultrasounds: normal mid trimester US Obstetrical complications: none Medical complications OB: none Narrative: Terence is a 24yo G1 @ 39w6d presents to L&D with report of increasing contractions for the last day. increasing in frequency and strength. denies LOF/VB and reports good movement. Preadmission Labs Last OB Lab Results: Blood Type A Positive 07/18/24, 10:24 Antibody Screen Negative 07/18/24, 10:24 Hct, (36-46) 31.1 % L 12/14/24, 14:13 Hgb, (12.0-16.0) 10.9 g/dL L 12/14/24, 14:13 Hep Bs Antigen, (NEGATIVE) Negative s/c 07/18/24, 10:24 Hepatitis C Antibody, (NEGATIVE) Negative s/c 07/18/24, 10:24 Rubella Antibody, (>15) 27.0 IU/mL 07/18/24, 10:24 VZV IgG Antibody, (Non Reactive) Non reactive 07/18/24, 10:24 Glucose 1 Hr 50 gm, (76-139) 144 mg/dL H 12/14/24, 14:13 Group B Strep (PCR) Neg for grp b strep 02/05/25, 13:54 Prior (ies) Hx # Term Pregnancies: 0 PFSH Surgical History [place] teeth removed Hx of breast biopsy Family History Mother Gallstones History of cholecystectomy Father Diabetes mellitus Aunt Stomach cancer Social History marital status: unmarried,single number of children: 0 lives independently: Yes caregiver/support person: No housing: other (barracks) pets and animals: No education level: high school occupational status: employed ([employer]) current occupational exposures/hazards: No (not since becoming ) special lisette needs: No travel history: recent () seatbelt use: always helmet use: Yes water heater temp set < 120 deg: Yes working smoke detector in home: Yes fire extinguisher in home: Yes carbon monox detector in home: Yes firearms in home: No do you feel safe at home: Yes second hand exposure: No alcohol intake: former (rarely when not ) substance use type: does not use during the past year weight has: remained stable well-balanced diet: about half the time daily servings fruits/ve-4 caffeine: No (stopped energy drinks w/ ) Type(s) of exercise: walking and weight lifting Meds Home Medications and Allergies Home Medications ?Medication ?Instructions ?Recorded ?Confirmed ?Type vitamin-ferrous sulfate 1 tab PO DAILY 07/18/24 02/27/25 History 27 mg iron-folic acid 0.8 mg tablet breast pump ([employer] Breast #1 ea 01/10/25 02/27/25 Rx Pump) Allergies Allergy/AdvReac Type Severity Reaction Status Date / Time No Known Drug Allergies Allergy Verified 02/27/25 14:04 OB Exam Narrative Exam Narrative: General- AAO x 3, NAD abdoen- gravid EFW by liliana- 7lbs LE- trace edema Assessment and Plan Assessment and Plan Assessment and Plan narrative: Patient is a 24yo G1 @ 39w6d presents to L&D with contractions to rule out labor 1. Rule out labor- cervix- 1-2cm/50/-3,posterior per RN, similar to prevoius exam, vertex contractoins q 3 mins on monitor FHTs overall reassuring but currently baseline 170s and possible late decel when first on monitor vs prolonged accel with return to baseline-- discussed option for prolonged monitoring vs proceed with IOL, patient strongly desire sinduction of labor. - will proceed with misoprostol for cervical ripening - primary OB notifieid - EFW by liliana= 7.5lbs - GBS negative - pain analgresia per request - anticpate Time-Based Coding :: [TOTAL MINUTES] spent with patient and on the chart (including review of chart, obtaining history, exam, reviewing outside data, placing orders, documenting exam and treatment plan, and counseling patient) on [DATE].
[2025-03-03 19:12] LABS: Add Manual Diff / Slide Review NO; Hematocrit 35.4 % (36-46); Hemoglobin 11.7 g/dL (12.0-16.0); Lymphocytes Absolute Auto 1900 /uL (1100-4500); Mean Corpuscular HGB Conc 33.1 % (30-36); Mean Corpuscular Hemoglobin 27.6 PG (26-34); Mean Corpuscular Volume 83.4 fL (80-100); Platelet Count 315 X10^3/uL (150-400)
[2025-03-04] MEDS: LACTATED RINGERS 1,000 ML 100 ML IV ×2 (04:40→12:18)
--- NOTE | 2025-03-04 07:53 | PM.OBPNLAB ---
Date/Time Date Patient Seen: 03/04/25 Time Patient Seen: 07:30 Pain Control Pain control: tolerating well Pelvic Exam Dilation (cm): 2 Effacement (%): 60 station: -2 Amniotic membrane status: Intact Contractions Contractions on admission: regular Monitor mode: External Contraction pattern: Regular Status status: Category l Heart Rate Baseline: 145 Monitor Accelerations: Present Monitor Decelerations: Absent Monitor Variability: Moderate Assessment and Plan Assessment: induction ongoing Plan: continuous present management Comments: 24 yo G1 at 40w0d here for IOL. GBS negative. uncomplicated. -misoprostol x1 at 5am, will switch to pitocin when next due -patient desires unmedicated delivery -anticipate vaginal delivery
--- NOTE | 2025-03-04 12:39 | PM.AN.REGBLK ---
Regional Block Pre-procedure Procedure: Continuous Lumbar Epidural for L&D Attending OB provider: Pat Wilson PMH/ROS narrative: Healthy presents in spontaneous labor, now augemented with pitocin, requesting MARY for labor pain. PSH/Anesthesia history narrative: Breast bx and wisdom teeth without anesthetic compliaction. Exam narrative: See pre-anesthesia evaluation. ASA Class: II Labs: Hct 35.4 % (36-46) L 03/03/25 19:00 Plt Count 315 X10^3/uL (150-400) 03/03/25 19:00 Medications: Current Medications Generic Name Dose Route Start Last Admin Trade Name Freq PRN Reason Stop Dose Admin Carboprost Tromethamine 250 mcg 03/03/25 18:43 Carboprost 250 Mcg/Ml Ampul IM Q90M PRN Bleeding Oxytocin/Lactated Ringer's 30 unit in 500 mls @ 200 mls/hr 03/03/25 18:43 Oxytocin Premix IV CONT PRN Bleeding Protocol Tranexamic Acid 1,000 mg/ 100 mls @ 600 mls/hr 03/03/25 18:43 Sodium Chloride IV NOW PRN Bleeding Lidocaine HCl 20 ml 03/03/25 18:43 Lidocaine 1% 20 Ml INJ INTRA-OP PRN Post Delivery Methylergonovine Maleate 0.2 mg 03/03/25 18:43 Methylergonovine 0.2 Mg Tablet PO Q6HR PRN Heavy Bleeding Methylergonovine Maleate 0.2 mg 03/03/25 18:43 Methylergonovine 0.2 Mg/Ml Vial IM NOW PRN Bleeding Mineral Oil 30 ml 03/03/25 18:43 Mineral Oil 30 Ml Udc TOP PRN PRN Version Misoprostol 800 mcg 03/03/25 18:43 Misoprostol 200 Mcg Tablet [place] NOW PRN Bleeding Misoprostol 400 mcg 03/03/25 18:43 Misoprostol 200 Mcg Tablet SL NOW PRN Bleeding Misoprostol 50 mcg 03/03/25 18:43 03/04/25 05:00 Misoprostol 25 Mcg Tablet PO 50 mcg Q4H PRN Administration cervical ripening Naloxone HCl 0.2 mg 03/03/25 18:43 Naloxone 0.4 Mg/Ml Vial IV Q2MIN PRN Opiate Reversal Oxytocin 10 unit 03/03/25 18:43 Oxytocin 10 Unit/Ml Vial IM NOW PRN Bleeding Allergies: Allergies Allergy/AdvReac Type Severity Reaction Status Date / Time No Known Drug Allergies Allergy Verified 02/27/25 14:04 Procedure Insertion date: 03/04/25 Insertion time: 11:49 Prep/Local: 1% lidocaine (5mL to L3/4 interspace. CHG for skin prep.) Interspace: L3/4 Patient position: sitting Needle: 18 gauge Hustead Loss of resistance with: saline PAUL at (cm): 6 Catheter placed at SKIN (cm): 12 Catheter in SPACE (cm): 6 Insertion: No CSF, No Blood, No Paresthesia with insertion, No Paresthesia with injection and No Test dose reaction Initial Medications TEST DOSE time: 11:50 TEST DOSE: 1.5% lidocaine with epinephrine 1:200k (mL): 3 BOLUS DOSE time: 11:52 BOLUS DOSE (mL): 10 BOLUS DOSE med: other (infusate) Infusion INFUSION: 0.125% bupivacaine and with fentanyl 2 mcg/mL Initial rate (mL/hr): 8 Subsequent interventions: 1425: Called to bedside for R sided contraction pain. Bolus given of 5mL 2% lido and 5ml of MPF 0.25% bupi. Post-procedure Anesthesia date START: 03/04/25 Anesthesia time START: 11:41 Anesthesia date END: 03/04/25 Anesthesia time END: 16:44 Post-procedure Anesthesia Assessment: Yes CV function: HR/BP stable, Yes Resp function: RR/sat/airway adequate, Yes Post-op hydration adequate, Yes Pain control adequate, Yes Nausea & vomiting absent, Yes Temperature > 36 C, Yes Mental status appropriate and No Anesthesia complications
--- NOTE | 2025-03-04 12:58 | PM.OBPNLAB ---
Date/Time Date Patient Seen: 03/04/25 Pain Control Pain control: tolerating well and epidural Pelvic Exam Dilation (cm): 5 Effacement (%): 90 station: -1 Amniotic membrane status: Intact Contractions Monitor mode: External Contraction pattern: Regular Status status: Category l Heart Rate Baseline: 150 Monitor Accelerations: Absent Monitor Decelerations: Absent Monitor Variability: Minimal Comments: cat 2 Assessment and Plan Assessment: induction ongoing Plan: continuous present management Comments: -AROM with exam, /-1 -comfortable with epidural
--- NOTE | 2025-03-04 15:49 | PM.OBPNLAB ---
Date/Time Date Patient Seen: 03/04/25 Pain Control Pain control: tolerating well and epidural Pelvic Exam Dilation (cm): 10 Effacement (%): 100 station: +1 Amniotic membrane status: Ruptured Contractions Monitor mode: External Contraction pattern: Regular Status status: Category l Heart Rate Baseline: 155 Monitor Accelerations: Absent Monitor Decelerations: Absent Monitor Variability: Minimal Comments: cat 2 Assessment and Plan Assessment: induction ongoing Plan: continuous present management Comments: -will begin pushing
[2025-03-04] MEDS: OXYTOCIN PREMIX 30 UNIT/500 ML PLAST..BAG 200 UNIT IV (16:50)
--- NOTE | 2025-03-04 17:10 | PM.OBPRVD ---
Labor & Delivery Delivery date: 03/04/25 Delivery Time: 16:44 Intrapartal Events: None Cervical ripening method: per misoprostal protocol Induction method: AROM Delivery monitor: external FHT Route of delivery: L&D Laceration Description: Periurethral - 1st Degree Estimated blood loss (mL): 150 Anesthesia Type: Epidural Narrative: The patient progressed to C/C/+2 after IOL with one dose of misoprostol and epidural anesthesia. After approximately 1 hour of maternal pushing efforts, the delivered in OA position and restituted JEANIE. The anterior shoulder delivered with gentle downward pressure. The posterior shoulder and rest of body delivered with ease. The cord was doubly clamped and cut after a 6 minute delay with the infant handed off to maternal abdomen. The placenta delivered spontaneously and was intact with a 3-vessel cord. The fundus was noted to be firm with bimanual massage and pitocin. Inspection of the cervix, vagina, and perineum was notable for a 1st degree periurethral laceration. All tissues noted to be hemostatic. No sutures were needed. All sponges were removed from the vagina. The patient tolerated delivery well and remained in the labor room with the infant at the bedside. Plan for aftercare: Routine care
--- NOTE | 2025-03-04 17:13 | P.HPNB_ITS ---
History History This is a 1 hour old female born to a 24 yo G1 now P1 mom at 40w0d via . uncomplicated. GBS neg. AROM clear. Time of : 16:44 Gestation: term Multiple fetuses: No Mode of delivery: vaginal score (1 min): 9 score (5 min): 9 Complications with delivery: No Nursery Course Nursery: term nursery Maternal RH factor: positive blood type: A Post delivery complications: Reports none Kemp Screening screen labs drawn: yes Hepatitis B vaccine given: unknown Review of Systems Review of Systems ROS: Yes All systems reviewed with the patient and are negative except as otherwise documented Exam - Pediatric Additional Exam Additional findings: GEN: NAD HEENT: Red Reflex not seen, external ears w/o tags or pits, No cephalohematoma, hard palate intact NECK: clavical intact bilaterally CV: RRR, no murmurs/rubs/gallops RESP: CTAB, no distress ABD: nl BS, soft, non-distended, no masses, no guarding, clean and dry umbilical stump RECTAL: Patent, no masses, no pits or hair tucks at gluteal cleft : Normal female genitalia for PULSES: 2+ femoral pulses b/l EXTR: No swelling or edema in the BLE, Negative Ortoloni and Clark b/l SKIN: No rashes or lesions throughout body, no spinal mary of hair or dimples, No Jaundice NEURO: moving all extremities equally, good tone, +Edgardo, +Furniture Mover in all four extremities, Good suck reflex, rooting present Objective Labs 03/03/25 19:00 Labs: Laboratory Results - last 24 hr 03/03/25 19:00 WBC 13.1 H RBC 4.24 Hgb 11.7 L Hct 35.4 L MCV 83.4 MCH 27.6 MCHC 33.1 RDW 14.7 Plt Count 315 Neut % (Auto) 77.9 H Lymph % (Auto) 14.3 L [place] % (Auto) 6.3 Eos % (Auto) 0.7 L Baso % (Auto) 0.8 Neut # (Auto) 44733 H Lymph # (Auto) 1900 [place] # (Auto) 800 Eos # (Auto) 100 Baso # (Auto) 100 Blood Type A Positive Antibody Screen Negative Assessment & Plan Assessment & Plan narrative: 1 hour old born via to a 24 yo G1 now P1 mom at 40w0d EGA. course uncomplicated. Normal care. Labor uncomplicated. - Routine care - Hepatitis B Vaccination, Vit K shot and erythromycin ointment recommended - CHD screen prior to discharge - Hearing Screen prior to discharge - screen prior to discharge - , will discharge with Poly-vi-asad - Maternal blood type A pos and Antibody neg - GBS neg - Maternal HIV neg, RPRP neg, Hep C neg, hep B neg Time-Based Coding :: [TOTAL MINUTES] spent with patient and on the chart (including review of chart, obtaining history, exam, reviewing outside data, placing orders, documenting exam and treatment plan, and counseling patient) on [DATE]. Sarnat Scoring Scale Citation Keke HB, Melody L, Sherri C, Damon LM, Perdo C, Chad K. Sarnat grading scale for encephalopathy after 45 years: an update proposal. Pediatr Neurol. 2020;113:75?9. [employer] Sales Representative Document charge(s): Yes Charge Codes Care - Initial: 17182
[2025-03-04] MEDS: TRANEXAMIC ACID 1,000 MG in SODIUM CHLORIDE 0.9% 100 ML 600 MG IV (17:16)
[2025-03-04] MEDS: DERMOPLAST SPRAY 20% 60 ML 1 SPRAY TOP (19:58)
--- NOTE | 2025-03-05 08:05 | PM.OBDS.1 ---
Discharge Providers Provider Date of admission: 03/03/25 19:10 Discharge Date: 03/05/25 Primary care physician: Anahi WYNN Provider Consults: 03/03/25 18:44 Consult to Anesthesiology Urgent Comment: Consulting Provider: Anesthesiologist Reason for consultation: Epidural Has provider been notified: No 03/04/25 17:15 Consult to Assistant Professor Of Life Sciences Routine Comment: Discharge provider: Pat Wilson MD Summary Hospital Course Date Patient Seen: 03/05/25 Diagnoses: term Hospital Course: This is a 24 yo G1 now P1 who presented for eIOL at 39w6d, she delivered at 40w0d via . GBS negative. uncomplicated. Baby well. Mom ambulating well. Bleeding minimal. Peripartum Data Infant Delivery Method: Natural Vaginal Laceration Description: Perineal - 1st Degree complications: none Status at Discharge Cognitive/behavioral status at discharge: oriented Functional status at discharge: independent ambulation Overall status at discharge: patient is back to baseline Time Spent with Patient Time attestation: Total time spent providing and/or coordinating discharge services: 20 min Time spent: Less than 30 minutes Objective Labs 03/03/25 19:00 Exam Narrative Exam Narrative: NAD, resting comfortably Discharge Plan Discharge Plan Patient Disposition: Home Discharge orders & Medications Prescriptions: New acetaminophen 325 mg Tablet 650 mg PO Q6H PRN (Reason: Pain, Mild (1-3)) Qty: 60 0RF docusate sodium 100 mg Capsule 100 mg PO DAILY Qty: 60 0RF ibuprofen 600 mg Tablet 600 mg PO Q6H Qty: 60 0RF Continued (DME) breast pump [[employer] Auto Breast Pump] Device See Rx Instructions .Route Qty: 1 0RF Rx Instructions: As directed vit-ferrous sulfat-FA 27 mg iron- 0.8 mg tablet 1 tab PO DAILY Follow up/Referrals: Provider,Anahi WYNN [Primary Care Provider, Family Practice] Pat Wilson MD [Physician, Family Practice] Referral Note: Please follow up with Dr. Wilson on April 15 @ 2:45pm for you 6 week appt. Visit Report/Discharge Packet Stand Alone Forms: Discharge: Care, [employer] [facility] [facility], Patient Portal/API, Stroke Signs & Symptoms, Influenza Vaccine Info, Notice of Privacy Practices, Inpatient vs Outpatient, Pneumococcal Vaccine Info, Pt. Rights & Responsibilities Discharge Data Primary Care Provider: ProviderAnahi Discharges patient from system. Discharge Date/Time: 03/05/25 15:00
[2025-03-05] MEDS: DOCUSATE 100 MG CAPSULE PO (10:29)
[2025-03-05] MEDS: PRENATAL VIT,CALC/IRON/FOLIC 1 TABLET 1 TAB PO (10:29)
[2025-03-05] MEDS: DERMOPLAST SPRAY 20% 60 ML 1 SPRAY TOP (13:01)
== END 2025-03-05 15:00 | disposition home or self-care (01) | DRG 807 ==
PROVIDERS: Obstetrics & Gynecology; Admitting Provider Student in an Organized Health Care Education/Training Program; Referring Provider Student in an Organized Health Care Education/Training Program; Visit Provider Student in an Organized Health Care Education/Training Program
DX: O71.82 Other specified trauma to perineum and vulva (principal); Z37.0 Single live birth; Z3A.39 39 weeks gestation of pregnancy; Z67.10 Type A blood, Rh positive; O76 Abnormality in fetal heart rate and rhythm complicating labor and delivery
CPT/HCPCS: 36415; 59025; 59050; 59200; 85025; 86850; 86900; 86901; G0378; G0379; J2590; J7050; J7120